=== PATIENT | male | born 1980 | race Hispanic/Latino ===

== ENCOUNTER 2018-06-27 01:37 | Emergency (ER) | payer BC ==
[2018-06-27 01:40] VITALS: BMI 25.0
[2018-06-27] MEDS ORDERED: Lactated Ringer's 1,000 ML IV STA ×2 (01:55→01:57)
--- NOTE | 2018-06-27 02:18 | ED PDOC ---
HPI: General Adult Time Seen by Provider: 06/27/18 01:49 Chief Complaint (Nursing): Abdominal Pain Chief Complaint (Provider): Vomiting History Per: Patient History/Exam Limitations: no limitations Onset/Duration Of Symptoms: Hrs (x5) Additional Complaint(s): 38 years old male with a history of hereditary neurodegenerative disorder presents to ER for evaluation of vomiting and severe nausea onset 9 pm. Patient reports 30 to 40 episodes of non bloody non bilious vomiting. He states his and [id number] had stomach viruses. Patient denies abdominal pain and diarrhea. PMD: None provided Past Medical History Reviewed: Historical Data, Nursing Documentation, Vital Signs Vital Signs: Last Vital Signs Temp 99.1 F 06/27/18 01:50 Pulse 139 H 06/27/18 01:50 Resp 21 06/27/18 01:50 BP 139/78 06/27/18 01:50 Pulse Ox 100 06/27/18 01:50 - Medical History Other PMH: Heredity neurodegenerative disorder - Surgical History Surgical History: No Surg Hx - Family History Family History: States: Unknown Family Hx - Social History Current smoker - smoking cessation education provided: No Alcohol: None Drugs: Denies - Home Medications Home Medications: Ambulatory Orders Medication Instructions Recorded Dicyclomine [Bentyl] 20 mg PO Q12 PRN #10 tab 06/27/18 Ondansetron ODT [Zofran ODT] 4 mg PO Q6 PRN #12 odt 06/27/18 - Allergies Allergies/Adverse Reactions: Allergies Allergy/AdvReac Type Severity Reaction Status Date / Time amoxicillin Allergy RASH Verified 06/27/18 01:53 Review of Systems ROS Statement: Except As Marked, All Systems Reviewed And Found Negative Gastrointestinal: Positive for: Nausea, Vomiting. Negative for: Abdominal Pain, Diarrhea Physical Exam - Reviewed Nursing Documentation Reviewed: Yes Vital Signs Reviewed: Yes - Physical Exam Appears: Positive for: Well, No Acute Distress Head Exam: Positive for: ATRAUMATIC, NORMOCEPHALIC Skin: Positive for: Normal Color, Warm, Dry Eye Exam: Positive for: Normal appearance, EOMI, PERRL ENT: Positive for: Other (Tacky mucous membrane) Neck: Positive for: Normal, Painless ROM, Supple Cardiovascular/Chest: Positive for: Tachycardia. Negative for: Murmur Respiratory: Positive for: Normal Breath Sounds. Negative for: Respiratory Distress Gastrointestinal/Abdominal: Positive for: Normal Exam, Soft. Negative for: Tenderness Back: Positive for: Normal Inspection. Negative for: L CVA Tenderness, R CVA Tenderness Extremity: Positive for: Normal ROM. Negative for: Pedal Edema, Swelling Neurologic/Psych: Positive for: Alert, Oriented (x3) - Laboratory Results Result Diagrams: 06/27/18 02:30 06/27/18 02:30 - ECG O2 Sat by Pulse Oximetry: 100 (RA) Pulse Ox Interpretation: Normal Medical Decision Making Medical Decision Making: Time: 0154 Initial Impression: 38 years old male with clinical dehydration insetting of vomiting. Initial Plan: --EKG --CMP --Lipase --Urine dipstick --CBC --Lactated Ringers 1,000 ml IV --Zofran 8 mg IV --Urinalysis 0434 Patient reports marked improvement in symptoms. No further nausea or vomiting. Patient is stable for discharge and return precautions provided. Diagnosis gastroenteritis. Scribe Attestation: Documented by Sasha Campbell, acting as a scribe for Walter Ellis MD. Provider Scribe Attestation: All medical record entries made by the Scribe were at my direction and personally dictated by me. I have reviewed the chart and agree that the record accurately reflects my personal performance of the history, physical exam, medical decision making, and the department course for this patient. I have also personally directed, reviewed, and agree with the discharge instructions and disposition. Disposition - Clinical Impression Clinical Impression: Gastroenteritis - Patient ED Disposition Is Patient to be Admitted: No - Disposition Disposition: Routine/Home Disposition Time: 04:34 Condition: IMPROVED Prescriptions: Dicyclomine [Bentyl] 20 mg PO Q12 PRN #10 tab PRN Reason: abdominal pain/diarrhea Ondansetron ODT [Zofran ODT] 4 mg PO Q6 PRN #12 odt PRN Reason: Nausea/Vomiting Instructions: Gastroenteritis (ED) Forms: Genn[employer] (Nepali)
[2018-06-27 02:33] LABS: BASO % 0.1 % (0.0-2.0); LYMPH # 0.2 K/uL (1.0-4.3); LYMPH % 2.4 % (20.0-40.0); MEAN CELL VOLUME 89.3 fl (80.0-94.0); MEAN CORPUSCULAR HEMOGLOBIN 29.9 pg (27.0-31.0); MEAN CORPUSCULAR HGB CONC 33.5 g/dL (33.0-37.0); MEAN PLATELET VOLUME 10.6 fl (7.2-11.7); MONO # 0.4 K/uL (0.0-0.8); MONO % 5.5 % (0.0-10.0); NEUT # 6.4 K/uL (1.8-7.0); NRBC % 0.1 % (0.0-0.0); PLATELET COUNT 139 K/uL (130-400); RBC 5.01 Mil/uL (4.40-5.90); RED CELL DISTRIBUTION WIDTH 12.4 % (11.5-14.5); WHITE BLOOD COUNT 6.9 K/uL (4.8-10.8)
[2018-06-27 02:43] LABS: ALB/GLOB RATIO 1.3 (1.0-2.1); ALT/SGPT 48 U/L (21-72); AST/SGOT 37 U/L (17-59); BLOOD UREA NITROGEN 26 mg/dl (9-20); CALCIUM 9.3 mg/dL (8.4-10.2); GFR NON-AFRICAN AMERICAN > 60; LIPASE 100 U/L (23-300)
[2018-06-27 04:30] LABS: BANDS 1 % (0-2); LYMPHOCYTE 5 % (20-50); MONOCYTE 4 % (0-10); NEUTROPHIL 90 % (42-75); PLATELET ESTIMATE NORMAL (NORMAL); TOTAL CELLS COUNTED 100
[2018-06-27 04:31] LABS: ANISOCYTOSIS SLIGHT; SPHEROCYTES SLIGHT
[2018-06-27 04:34] VITALS: BP 129/84; PULSE 92; RESP 15; TEMP 99
[2018-06-27 04:46] VITALS: O2SAT 100
--- NOTE | 2018-06-27 09:02 | CARD ---
APPROVED REPORT Date of service: 06/27/2018 EKG Measurement Heart [id number] <Conclusion> Normal sinus rhythm Nonspecific T wave abnormality Abnormal ECG
== END 2018-06-27 04:34 | disposition home or self-care (01) ==
LOC: H.ER 01:37
DX: K52.9 Noninfective gastroenteritis and colitis, unspecified (principal); E86.0 Dehydration
CPT/HCPCS: 80053; 82948; 83690; 85025; 93005; 99283; J2405; J7120